=== PATIENT | male | born 1945 | race Two or more races ===

== ENCOUNTER 2025-01-31 08:39 | Emergency (ER) | payer OTHER ==
[~2025-01-31] VITALS: Ht 172.7 cm; Wt 59.0 kg
[~2025-01-31 08:39] MED LIST: SYNTHROID100 MCG; TOPROL XL50 MG
[2025-01-31] MEDS ORDERED: ALTACE1.25 MG (08:52)
[2025-01-31] MEDS ORDERED: KETOROLAC TROMETHAMINE 60 MG VIAL IM ONE (09:15)
[2025-01-31] MEDS ORDERED: CEFTRIAXONE SODIUM 1,000 MG VIAL IM ONE (09:15)
[2025-01-31 09:50] LABS: HEMATOCRIT 39.3 % (39.0-48.0); HEMOGLOBIN 13.5 g/dL (13-16.00); MEAN CELL VOLUME 98.4 fL (80.0-100.00); MEAN CORPUSCULAR HEMOGLOBIN 33.9 pg (27.00-32.0); MEAN CORPUSCULAR HGB CONC 34.5 g/dl (32.0-36.0); PLATELET COUNT 215 K/uL (150-450); RED BLOOD COUNT 3.99 M/uL (4.00-6.00); RED CELL DISTRIBUTION WIDTH 12.8 % (11.5-14.5)
[2025-01-31] MEDS ORDERED: PEPCID AC20 MG PO (09:57)
[2025-01-31] MEDS ORDERED: CEFUROXIME500 MG PO (09:57)
== END 2025-01-31 10:05 | disposition home or self-care (01) ==
LOC: ER 08:40
PROVIDERS: General Practice
DX: L53.9 Erythematous condition, unspecified (principal); E03.8 Other specified hypothyroidism; I10 Essential (primary) hypertension
CPT/HCPCS: 36415; 73630; 96372; 99283; J0696; J1885